=== PATIENT | female | born 1995 | race Two or more races ===

== ENCOUNTER 2017-09-27 03:23 | Emergency (ER) | payer MEDICAID ==
[~2017-09-27] VITALS: Ht 167.6 cm; Wt 50.0 kg
[2017-09-27] MEDS ORDERED: SODIUM CHLORIDE 0.9% 1,000 ML IV ONE (04:26)
[2017-09-27] MEDS ORDERED: MORPHINE SULFATE 4 MG/ML CPJ (NOT FOR IM USE) IV STA (04:26)
[2017-09-27] MEDS ORDERED: ONDANSETRON HCL 4MG/2ML VIAL IV STA (04:26)
[2017-09-27 04:35] LABS: CLARITY URINE CLEAR (CLEAR); COLOR URINE YELLOW (YELLOW); GLUCOSE URINE NEGATIVE (NEGATIVE); KETONES URINE TRACE (NEGATIVE); LEUKOCYTE ESTERASE URINE NEGATIVE (NEGATIVE); NITRITE URINE POSITIVE (NEGATIVE); OCCULT BLOOD URINE NEGATIVE (NEGATIVE); PROTEIN URINE NEGATIVE (NEGATIVE); SPECIFIC GRAVITY URINE 1.017 (1.005-1.030)
[2017-09-27] MEDS ORDERED: MORPHINE SULFATE 10 MG/ML CPJ IV STA ×2 (04:46→06:29)
[2017-09-27 04:52] LABS: HEMOGLOBIN. 14.2 g/dL (12.0-16.0); MEAN CORPUSCULAR HEMOGLOBIN 29.6 pg (28.0-32.0); MEAN CORPUSCULAR VOLUME 87.6 fL (81.0-99.0); MEAN PLATELET VOLUME 7.7 fl (7.4-10.4); PLATELET 192 x1000/uL (130-400); RED CELL DISTRIBUTION WIDTH 12.9 % (11.6-14.6)
[2017-09-27] MEDS ORDERED: MORPHINE SULFATE 10 MG/ML CPJ IV SCH (05:00)
[2017-09-27 05:19] LABS: CARBON DIOXIDE 28 mEq/L (21-32)
[2017-09-27 05:31] LABS: CHLORIDE 102 mEq/L (98-107)
[2017-09-27 05:42] LABS: PLATELET ESTIMATE NORMAL
[2017-09-27 08:00] VITALS: BP 150/85
== END 2017-09-27 08:12 | disposition home or self-care (01) ==
LOC: ER 03:23
DX: R10.13 Epigastric pain (principal); R11.2 Nausea with vomiting, unspecified
CPT/HCPCS: 36415; 76700; 80053; 81001; 83690; 85025; 96361; 96374; 96375; 96376; 99285; J2270; J2405; Z7610; J7030

== ENCOUNTER 2023-03-27 21:02 | Emergency (ER) | payer MEDICAID, OTHER ==
[~2023-03-27] VITALS: Ht 160 cm; Wt 63.2 kg
[2023-03-27] MEDS ORDERED: HYDRALAZINE 20MG/ML VIAL IV ONE (22:45)
[2023-03-27] MEDS ORDERED: PYRIDOXINE HCL 50MG TABLET PO ONE (22:45)
[2023-03-27] MEDS ORDERED: METOCLOPRAMIDE HCL 10MG/2ML VIAL IV ONE (22:45)
[2023-03-27] MEDS ORDERED: SODIUM CHLORIDE 0.9% 1,000 ML IV ONE (22:45)
[2023-03-27 23:38] LABS: BASOPHILS % 0.2 % (0.0-2.0); EOSINOPHILS % 0.2 % (0.0-5.0); HEMATOCRIT. 41.9 % (36.0-48.0); HEMOGLOBIN. 14.3 g/dL (12.0-16.0); LYMPHOCYTES % 8.7 % (20.0-50.0); MEAN CORPUSCULAR HEMOGLOBIN 30.2 pg (28.0-32.0); MEAN CORPUSCULAR VOLUME 88.3 fL (81.0-99.0); MEAN PLATELET VOLUME 8.6 fl (7.4-10.4); MONOCYTES % 4.6 % (2.0-8.0); NEUTROPHILS % 86.3 % (40.0-76.0); PLATELET 265 x1000/uL (130-400); RED BLOOD CELL COUNT 4.74 mill/uL (4.2-5.4); RED CELL DISTRIBUTION WIDTH 12.4 % (11.6-14.6)
[2023-03-27 23:42] LABS: CHLORIDE 104 mEq/L (98-107)
[2023-03-27 23:49] LABS: PROTHROMBIN TIME 11.1 sec (9.6-11.0)
[2023-03-28 00:06] LABS: B-HCG QUANTITATIVE 64617 mIU/mL (<3)
[2023-03-28] MEDS ORDERED: ONDA4TAB11 PO (02:59)
[2023-03-28 03:00] VITALS: BP 115/67
== END 2023-03-28 03:12 | disposition home or self-care (01) ==
LOC: ER 21:02
DX: O21.0 Mild hyperemesis gravidarum (principal); Z3A.01 Less than 8 weeks gestation of pregnancy; O16.1 Unspecified maternal hypertension, first trimester
CPT/HCPCS: 36415; 76801; 76817; 80053; 83690; 83735; 84702; 85025; 85610; 96361; 96374; 96375; 99285; J0360; J2765; J7030; Z7610

== ENCOUNTER 2023-05-04 22:02 | Emergency (ER) | payer MEDICAID, OTHER ==
[~2023-05-04] VITALS: Ht 160 cm; Wt 49.0 kg
[~2023-05-04 22:02] MED LIST: ONDA4TAB11 PO
[2023-05-04 22:11] VITALS: O2SAT 99
[2023-05-05] MEDS ORDERED: HYDROCODONE/ACETAMINOPHEN 5/325MG TABLET PO ONE
[2023-05-05 00:08] VITALS: BP 178/123
[2023-05-05] MEDS ORDERED: IBUP-2029 MT (01:28)
[2023-05-05] MEDS ORDERED: AMOX1TAB16 MT (01:28)
[2023-05-05 01:39] VITALS: PULSE 92; RESP 17; TEMP 98.2
== END 2023-05-05 01:40 | disposition home or self-care (01) ==
LOC: ER 22:02
DX: S00.83XA Contusion of other part of head, initial encounter (principal); I10 Essential (primary) hypertension; Y08.89XA Assault by other specified means, initial encounter; Y93.89 Activity, other specified; Y92.89 Other specified places as the place of occurrence of the external cause; Y99.8 Other external cause status
CPT/HCPCS: 70486; 81025; 99284

== ENCOUNTER 2024-11-09 09:49 | Emergency (ER) | payer OTHER ==
[~2024-11-09] VITALS: Ht 157.5 cm; Wt 56.0 kg
[~2024-11-09 09:49] MED LIST changes: +AMOX1TAB16 MT; +IBUP-2029 MT; +ONDA-239 PO; -ONDA4TAB11 PO
[2024-11-09 10:01] VITALS: BP 133/88; PULSE 90; RESP 16; TEMP 98.6; O2SAT 97
[2024-11-09] MEDS ORDERED: METOCLOPRAMIDE HCL 10MG/2ML VIAL IV ONE (10:30)
[2024-11-09 13:21] LABS: BASOPHILS % 0.7 % (0.0-2.0); EOSINOPHILS % 0.3 % (0.0-5.0); HEMATOCRIT. 47.4 % (36.0-48.0); HEMOGLOBIN. 16.1 g/dL (12.0-16.0); LYMPHOCYTES % 26.8 % (20.0-50.0); MEAN CORPUSCULAR HEMOGLOBIN 30.3 pg (28.0-32.0); MEAN CORPUSCULAR HGB CONC 33.9 g/dL (31.0-37.0); MEAN CORPUSCULAR VOLUME 89.2 fL (81.0-99.0); MEAN PLATELET VOLUME 8.2 fl (7.4-10.4); MONOCYTES % 12.4 % (2.0-8.0); NEUTROPHILS % 59.8 % (40.0-76.0); PLATELET 223 x1000/uL (130-400); RED BLOOD CELL COUNT 5.31 mill/uL (4.2-5.4); RED CELL DISTRIBUTION WIDTH 12.9 % (11.6-14.6); WHITE BLOOD COUNT 4.1 x1000/uL (4.5-11.0)
[2024-11-09 14:00] LABS: CHLORIDE 104 mEq/L (98-107); POTASSIUM 3.9 mEq/L (3.5-5.1); SODIUM 138 mEq/L (136-145)
[2024-11-09 14:01] LABS: CALCIUM 9.9 mg/dL (8.7-10.4); CARBON DIOXIDE 22 mEq/L (21-32)
[2024-11-09 14:06] LABS: CREATININE 0.7 mg/dL (0.6-1.0); GLUCOSE 81 mg/dL (70-105); UREA NITROGEN BLOOD 11 mg/dL (9-23)
[2024-11-09] MEDS ORDERED: DOXY1TAB6 PO (14:32)
[2024-11-09] MEDS ORDERED: METOCLOPRAMIDE HCL 10MG TABLET PO ONE (14:45)
== END 2024-11-09 15:00 | disposition home or self-care (01) ==
LOC: ER 10:02
DX: O26.891 Other specified pregnancy related conditions, first trimester (principal); R11.2 Nausea with vomiting, unspecified; F10.90 Alcohol use, unspecified, uncomplicated; I10 Essential (primary) hypertension; Z3A.01 Less than 8 weeks gestation of pregnancy; Y90.9 Presence of alcohol in blood, level not specified
CPT/HCPCS: 80048; 85025; 36415; 99283; J8597; Z7610